=== PATIENT | male | born 1985 | race Caucasian/White ===

== ENCOUNTER 2016-09-26 16:12 | Emergency (ER) | payer SELFPAY ==
[2016-09-26 16:23] VITALS: BP 136/99
--- NOTE | 2016-09-26 17:04 | UC ---
Cardiac HPI - HPI Summary HPI Summary: complaint of chest pain that started 3-4 months ago feels a cramping in his chest sometimes feels some shortness of breath hasn't been able to come in until today d/t his schedule today at 12:00 felt a cramping in his chest that lasted for several seconds intermittent for 2-3 minutes during the cramping felt slightly short of breath and nauseated at that time denies dizziness, diaphoresis heroin user- had a rough night last night because he used some old heroin from a cooking dish and since he had yesterday - felt tired and sweaty then coudn't sleep last night at this time he has no chest pain wants to be checked for lyme disease-d/t having many tock bites during the last year- doesn't have a PCP - History of Current Complaint Chief Complaint: UCChestPain Stated Complaint: CHEST CRAMPING Time Seen by Provider: 09/26/16 16:55 Hx Obtained From: Patient - Allergy/Home Medications Allergies/Adverse Reactions: Allergies Allergy/AdvReac Type Severity Reaction Status Date / Time No Known Allergies Allergy Verified 08/06/15 16:10 PMH/Surg Hx/FS Hx/Imm Hx Previously Healthy: Yes - heroin user Endocrine History: Hyperthyroidism - HepC - Surgical History Surgical History: Yes Surgery Procedure, Year, and Place: fx lft ankle 2005- surgical repair with screws - Family History Known Family History: Positive: Other - NONCONTIBUTORY Negative: Cardiac Disease, Hypertension, Diabetes - Social History Occupation: Employed Full-time Lives: With Family Alcohol Use: Weekly Substance Use Type: Heroin, Marijuana Substance Use Comment - Amount & Last Used: daily heroin user Smoking Status (MU): Current Some Day Smoker Type: Cigarettes Amount Used/How Often: 1 ppd Have You Smoked in the Last Year: Yes Cessation Counseling: Patient Advised to Stop - Immunization History Most Recent Influenza Vaccination: never Most Recent Tetanus Shot: unknown Most Recent Pneumonia Vaccination: never Review of Systems Constitutional: Fatigue Skin: Negative Eyes: Negative ENT: Negative Respiratory: Negative Cardiovascular: Chest Pain - resolved Gastrointestinal: Negative Genitourinary: Negative Motor: Negative Neurovascular: Negative Musculoskeletal: Negative Neurological: Negative Psychological: Negative All Other Systems Reviewed And Are Negative: Yes Physical Exam Triage Information Reviewed: Yes Appearance: No Pain Distress, Well-Nourished Vital Signs: Initial Vital Signs Temp 97.9 F 09/26/16 16:19 Pulse 92 09/26/16 16:19 Resp 20 09/26/16 16:19 BP 136/99 09/26/16 16:19 Pulse Ox 99 09/26/16 16:19 Vital Signs Reviewed: Yes Eyes: Positive: Conjunctiva Clear ENT: Positive: Pharynx normal, TMs normal Neck: Positive: No Lymphadenopathy Respiratory: Positive: Lungs clear, Normal breath sounds, No respiratory distress, No accessory muscle use Cardiovascular: Positive: RRR, No Murmur, Pulses Normal Abdomen Description: Positive: Nontender, Soft Bowel Sounds: Positive: Present Musculoskeletal: Positive: No Edema Neurological: Positive: Alert Psychological Exam: Normal Skin Exam: Normal - Differential Diagnoses - Chest Pain Differential Diagnosis/HQI/PQRI: Acute [place], ACS - Differential Diagnoses - Palpitations Differential Diagnosis/HQI/PQRI: Pericarditis - Clinical Impression Provider Diagnoses: chest pain Discharge - Discharge Plan Condition: Stable Disposition: AGAINST MEDICAL ADVICE Patient Education Materials: Tick Bite (ED), Chest Pain (ED), Narcotic Abuse ( ED) Referrals: No Primary Care Phys,NOPCP [Primary Care Provider] - [facility] [place] [facility] [Outside] Additional Instructions: Your ECG is normal at this time. I recommend that you be seen in the emergency department for further evaluation and treatment today. please call the patient referral number to find a primary care physician
== END 2016-09-26 17:31 | disposition left against medical advice (07) ==
LOC: UCEAST 16:12
DX: R07.9 Chest pain, unspecified (principal); F17.210 Nicotine dependence, cigarettes, uncomplicated
CPT/HCPCS: 86618; 93005; 99212; G0463

== ENCOUNTER 2016-10-07 16:59 | Emergency (ER) | payer OTHER ==
[2016-10-07] MEDS ORDERED: oxyCODONE TAB* 5 MG TAB PO ONE ×2 (18:15→22:04)
[2016-10-07] MEDS ORDERED: cefTRIAXone(*) 1 GM in NS 0.9% 50 ML* 50 ML IVPB ONE ×2 (18:15→20:03)
[2016-10-07] MEDS ORDERED: NS 0.9% 1000 ML* 2,000 ML IV ONE (18:15)
[2016-10-07 19:21] LABS: Hematocrit 39 % (42-52); Hemoglobin 13.1 g/dl (14.0-18.0); Mean Corpuscular HGB Conc 34 g/dl (31-36); Mean Corpuscular Hemoglobin 29 pg (27-31); Mean Corpuscular Volume 85 fL (80-94); Mean Platelet Volume 8 um3 (7.4-10.4); Red Blood Count 4.59 10^6/ul (4.0-5.4); Red Cell Distribution Width 13 % (10.5-15); White Blood Count 8.6 10^3/ul (3.5-10.8)
[2016-10-07 19:41] LABS: ALT 19 U/L (7-52); AST 23 U/L (13-39); Alkaline Phosphatase 96 U/L (34-104); Anion Gap 7 mmol/L (2-11); BUN/Creatinine Ratio 13.1 (8-20); Blood Urea Nitrogen 8 mg/dL (6-24); CO2 Carbon Dioxide 27 mmol/L (22-32); Calcium 9.6 mg/dL (8.6-10.3); Chloride 103 mmol/L (101-111); Creatine Kinase 89 U/L (10-223); EGFR African American 199.6 (>60); EGFR Non-African American 155.2 (>60); Glucose 89 mg/dL (70-100); Lipase 25 U/L (11.0-82.0); Sodium 137 mmol/L (133-145)
[2016-10-07 19:45] LABS: Acetaminophen < 15 mcg/mL; Alcohol < 10 mg/dL (<10); Salicylate < 2.50 mg/dL (<30)
[2016-10-07 19:54] LABS: TSH (Thyroid Stimulating Horm) 0.21 mcIU/mL (0.34-5.60)
[2016-10-07] MEDS ORDERED: NS 0.9% 1000 ML* 1,000 ML IV ONE (20:03)
[2016-10-07] MEDS ORDERED: Iohexol 350* (CONTRAST) 500 ML MDV IV ONE (20:07)
--- NOTE | 2016-10-07 20:17 | RAD ---
Indication: Lower extremity infection. Comparison: No relevant prior exams available on the [facility] PACS for comparison. Technique: Upright AP 1940 hours Report: Clear lungs and pleural spaces. The heart, pulmonary vasculature, and mediastinal contours are unremarkable. Unremarkable osseous structures and soft tissue contours. IMPRESSION: No evidence for acute intrathoracic disease.
--- NOTE | 2016-10-07 20:23 | RAD ---
Indication: LEFT ankle pain. Previous ankle surgery. Comparison: March 12, 2006 radiographs. Technique: AP, mortise, and lateral views LEFT ankle. AP and lateral views Report: No evidence for component failure or loosening with regard to the internal fixation hardware at the distal fibula/lateral malleolus and tibial plafond and. Mild widening of the ankle mortise medially decreased compared with the 2006 exam. No acute or subacute fracture evident. Minimal osteophytosis at the talocrural joint. Mild nonfocal soft tissue swelling. IMPRESSION: Internal fixation hardware at healed distal fibula and tibial plafond fractures. Mild widening of the ankle mortise medially decreased compared with the 2006 exam. Mild talocrural joint osteoarthritis.
--- NOTE | 2016-10-07 20:39 | RAD ---
Indication: Anterior mid shaft region RIGHT lower extremity infection. Comparison: No relevant prior exams available on the [facility] PACS for comparison. Technique: AP and lateral views RIGHT lower leg. Report: Mild soft tissue edema at the proximal diaphysis region soft tissue plane. No conspicuous foreign body. Negative for subcutaneous emphysema. Negative for fracture, periosteal reaction, or articular malalignment. IMPRESSION: Mild anterior soft tissue swelling. Negative for fracture or radiographic stigmata of osteomyelitis.
--- NOTE | 2016-10-07 20:47 | RAD ---
INDICATION: Chest pain. Positive d-dimer. COMPARISON: October 07, 2016 TECHNIQUE: Multidetector CT images were obtained from the lung apices to the upper abdomen with 82 mL Omnipaque 350 IV contrast. Pulmonary angiogram protocol. Multiplanar reformation including with maximum intensity projection. REPORT: Clear lungs and pleural spaces. Negative for pneumothorax. Normal variant residual thymic tissue in the anterior mediastinum. Negative for thoracic lymphadenopathy, cardiomegaly, pericardial effusion. Unremarkable thoracic aorta. No filling defects are identified from the main to the subsegmental pulmonary arteries to indicate presence of a pulmonary embolism. Unremarkable images through the upper abdomen. Unremarkable osseous structures. IMPRESSION: No evidence for pulmonary embolism or other acute intrathoracic disease.
[2016-10-07] MEDS ORDERED: cefTRIAXone(*) 1 GM ADVAN ONE (21:07)
--- NOTE | 2016-10-07 21:22 | RAD ---
INDICATION: Lower extremity pain. COMPARISON: No relevant prior exams available on the [facility] PACS for comparison. TECHNIQUE: Higgins scale, color Doppler, and spectral analysis of the deep veins of the RIGHT lower extremity. Vessel compression, phasicity, and augmentation assessed. The patient declined evaluation of the LEFT leg despite physician order for bilateral exam. REPORT: The RIGHT common femoral, great saphenous, profunda femoral, femoral, popliteal, peroneal, and posterior tibial veins are patent. IMPRESSION: No evidence for RIGHT lower extremity deep venous thrombosis.
[2016-10-07] MEDS ORDERED: Cephalexin CAP* 500 MG PO ONE ×2 (22:03)
--- NOTE | 2016-10-07 22:13 | ED ---
Sawyer Gannon Benjamin, scribed for Pedro Cintron MD on 10/07/16 at 1854 . Lower Extremity - HPI Summary HPI Summary: 30yo male c/o right varela wound from previous fall that is now painful, red, and swollen. Pt also has ortho surgical hx in his left ankle with rods and screws put in, which pt complains that has been more painful and swollen. Pt is unable to bear weight in his left ankle. Pt reports subjective fever and is worried that his right varela might be infected. Pt also reports intermittent chest cramps and SOB for 6 months. Pt has hx of heroin use and last reported use was 2 weeks ago. - History of Current Complaint Chief Complaint: EDExtremityLower Stated Complaint: LEG PAIN Time Seen by Provider: 10/07/16 18:02 Hx Obtained From: Patient Onset/Duration: Still Present Severity Initially: Moderate Severity Currently: Moderate Pain Intensity: 8 Pain Scale Used: 0-10 Numeric Timing: Constant Location: Is Discrete @ - right varela and left ankle Character Of Pain: Aching, Throbbing Associated Signs And Symptoms: Positive: Swelling, Redness, Fever - Allergies/Home Medications Allergies/Adverse Reactions: Allergies Allergy/AdvReac Type Severity Reaction Status Date / Time No Known Allergies Allergy Verified 08/06/15 16:10 PMH/Surg Hx/FS Hx/Imm Hx Endocrine/Hematology History: Denies: Hx Diabetes, Hx Thyroid Disease Cardiovascular History: Denies: Hx Hypertension Respiratory History: Denies: Hx Asthma, Hx Chronic Obstructive Pulmonary Disease (COPD) GI History: Denies: Hx Ulcer Psychiatric History: Reports: Hx Substance Abuse - Surgical History Surgery Procedure, Year, and Place: fx lft ankle 2005- surgical repair with screws Infectious Disease History: Yes Infectious Disease History: Reports: Hx Hepatitis - hep C Denies: Hx Clostridium Difficile, Hx Human Immunodeficiency Virus (HIV), Hx of Known/Suspected MRSA, Hx Shingles, Hx Tuberculosis, History Other Infectious Disease, Traveled Outside the [place] in Last 30 Days - Family History Known Family History: Positive: Other - NONCONTIBUTORY Negative: Cardiac Disease, Hypertension, Diabetes - Social History Occupation: Employed Full-time Lives: With Family Alcohol Use: Weekly Substance Use Type: Reports: Heroin, Marijuana, Prescribed Substance Use Comment - Amount & Last Used: occasionally uses heroin, weekly marijuana Smoking Status (MU): Light Every Day Tobacco Smoker Type: Cigarettes Amount Used/How Often: 1 ppd Have You Smoked in the Last Year: Yes Review of Systems Positive: Fever Eyes: Negative ENT: Negative Positive: Chest Pain Positive: Shortness Of Breath Genitourinary: Negative Positive: Arthralgia - left ankle; right varela, Edema - left ankle; right varela Positive: Other - right varela wound Neurological: Negative Psychological: Normal All Other Systems Reviewed And Are Negative: Yes Physical Exam Triage Information Reviewed: Yes Vital Signs On Initial Exam: Initial Vitals Temp Pulse Resp BP Pulse Ox 98.6 F 64 13 134/82 99 10/07/16 17:08 10/07/16 17:08 10/07/16 17:08 10/07/16 17:08 10/07/16 17:08 Vital Signs Reviewed: Yes Appearance: Positive: Well-Appearing, Well-Nourished, Pain Distress - mild Skin: Positive: Warm, Skin Color Reflects Adequate Perfusion, Dry, Other - Right varela 2.5mm scab 6mm erythema, no drainage. Head/Face: Positive: Normal Head/Face Inspection Eyes: Positive: EOMI, EFREN ENT: Positive: Normal ENT inspection Neck: Positive: Supple, Nontender Respiratory/Lung Sounds: Positive: Clear to Auscultation, Breath Sounds Present Cardiovascular: Positive: RRR. Negative: Murmur Abdomen Description: Positive: Nontender, Soft Bowel Sounds: Positive: Present Musculoskeletal: Positive: Pain @ - Left ankle tender to palpation not erythematous. Neurological: Positive: Sensory/Motor Intact, Alert, Oriented to Person Place, Time, CN Intact II-III Psychiatric: Positive: Affect/Mood Appropriate - [place] Coma Scale Coma Scale Total: 15 Diagnostics - Vital Signs Vital Signs Temp Pulse Resp BP Pulse Ox 10/07/16 17:08 98.6 F 64 13 134/82 99 - Laboratory Lab Results: Lab Results 10/07/16 10/07/16 10/07/16 Range/Units 19:00 19:00 19:00 WBC 8.6 (3.5-10.8) 10^3/ul RBC 4.59 (4.0-5.4) 10^6/ul Hgb 13.1 L (14.0-18.0) g/dl Hct 39 L (42-52) % MCV 85 (80-94) fL MCH 29 (27-31) pg MCHC 34 (31-36) g/dl RDW 13 (10.5-15) % Plt Count 361 (150-450) 10^3/ul MPV 8 (7.4-10.4) um3 Neut % (Auto) 60.7 (38-83) % Lymph % (Auto) 29.2 (25-47) % [place] % (Auto) 8.1 (1-9) % Eos % (Auto) 0.6 (0-6) % Baso % (Auto) 1.4 (0-2) % Absolute Neuts (auto) 5.2 (1.5-7.7) 10^3/ul Absolute Lymphs (auto) 2.5 (1.0-4.8) 10^3/ul Absolute Monos (auto) 0.7 (0-0.8) 10^3/ul Absolute Eos (auto) 0.1 (0-0.6) 10^3/ul Absolute Basos (auto) 0.1 (0-0.2) 10^3/ul Absolute Nucleated RBC 0.02 10^3/ul Nucleated RBC % 0.3 INR (Anticoag Therapy) 1.02 (0.89-1.11) APTT 31.4 (26.0-36.3) seconds D-Dimer, Quantitative 638 H (Less Than 230) ng/mL Sodium 137 (133-145) mmol/L Potassium 4.0 (3.5-5.0) mmol/L Chloride 103 (101-111) mmol/L Carbon Dioxide 27 (22-32) mmol/L Anion Gap 7 (2-11) mmol/L BUN 8 (6-24) mg/dL Creatinine 0.61 L (0.67-1.17) mg/dL Est GFR ( Amer) 199.6 (>60) Est GFR (Non-Af Amer) 155.2 (>60) BUN/Creatinine Ratio 13.1 (8-20) Glucose 89 (70-100) mg/dL Lactic Acid (0.5-2.0) mmol/L Calcium 9.6 (8.6-10.3) mg/dL Total Bilirubin 0.50 (0.2-1.0) mg/dL AST 23 (13-39) U/L ALT 19 (7-52) U/L Alkaline Phosphatase 96 (34-104) U/L Total Creatine Kinase 89 (10-223) U/L CK-MB (CK-2) 0.8 (0.6-6.3) ng/mL Troponin I 0.00 (<0.04) ng/mL C-Reactive Protein 12.30 H (< 5.00) mg/L Total Protein 8.0 (6.4-8.9) g/dL Albumin 4.0 (3.2-5.2) g/dL Globulin 4.0 (2-4) g/dL Albumin/Globulin Ratio 1.0 (1-3) Lipase 25 (11.0-82.0) U/L TSH 0.21 L (0.34-5.60) mcIU/mL Salicylates < 2.50 (<30) mg/dL Acetaminophen < 15 mcg/mL Serum Alcohol < 10 (<10) mg/dL 10/07/16 Range/Units 19:00 WBC (3.5-10.8) 10^3/ul RBC (4.0-5.4) 10^6/ul Hgb (14.0-18.0) g/dl Hct (42-52) % MCV (80-94) fL MCH (27-31) pg MCHC (31-36) g/dl RDW (10.5-15) % Plt Count (150-450) 10^3/ul MPV (7.4-10.4) um3 Neut % (Auto) (38-83) % Lymph % (Auto) (25-47) % [place] % (Auto) (1-9) % Eos % (Auto) (0-6) % Baso % (Auto) (0-2) % Absolute Neuts (auto) (1.5-7.7) 10^3/ul Absolute Lymphs (auto) (1.0-4.8) 10^3/ul Absolute Monos (auto) (0-0.8) 10^3/ul Absolute Eos (auto) (0-0.6) 10^3/ul Absolute Basos (auto) (0-0.2) 10^3/ul Absolute Nucleated RBC 10^3/ul Nucleated RBC % INR (Anticoag Therapy) (0.89-1.11) APTT (26.0-36.3) seconds D-Dimer, Quantitative (Less Than 230) ng/mL Sodium (133-145) mmol/L Potassium (3.5-5.0) mmol/L Chloride (101-111) mmol/L Carbon Dioxide (22-32) mmol/L Anion Gap (2-11) mmol/L BUN (6-24) mg/dL Creatinine (0.67-1.17) mg/dL Est GFR ( Amer) (>60) Est GFR (Non-Af Amer) (>60) BUN/Creatinine Ratio (8-20) Glucose (70-100) mg/dL Lactic Acid 0.8 (0.5-2.0) mmol/L Calcium (8.6-10.3) mg/dL Total Bilirubin (0.2-1.0) mg/dL AST (13-39) U/L ALT (7-52) U/L Alkaline Phosphatase (34-104) U/L Total Creatine Kinase (10-223) U/L CK-MB (CK-2) (0.6-6.3) ng/mL Troponin I (<0.04) ng/mL C-Reactive Protein (< 5.00) mg/L Total Protein (6.4-8.9) g/dL Albumin (3.2-5.2) g/dL Globulin (2-4) g/dL Albumin/Globulin Ratio (1-3) Lipase (11.0-82.0) U/L TSH (0.34-5.60) mcIU/mL Salicylates (<30) mg/dL Acetaminophen mcg/mL Serum Alcohol (<10) mg/dL Result Diagrams: 10/07/16 19:00 10/07/16 19:00 Lab Statement: Any lab studies that have been ordered have been reviewed, and results considered in the medical decision making process. - Radiology CXR Xray Interpretation: No Acute Changes Radiology Interpretation Completed By: Radiologist left ankle XR Xray Interpretation: Positive (See Comments) - IMPRESSION: Internal fixation hardware at healed distal fibula and tibial plafond fractures. Mild widening of the ankle mortise medially decreased compared with the 2006 exam. Mild talocrural joint osteoarthritis. Radiology Interpretation Completed By: Radiologist Lower extremities XR Xray Interpretation: No Acute Changes Radiology Interpretation Completed By: Radiologist - CT CTA Chest CT Interpretation: No Acute Changes - no PE CT Interpretation Completed By: Radiologist - Ultrasound No standard instances Ultrasound Interpretation: No Acute Changes - no right lower extremity DVT Ultrasound Interpretation Completed By: Radiologist - EKG 1724 Cardiac Rate: NL - 61bpm ST Segment: Normal Ectopy: None EKG Interpretation: normal sinus arrhythemia Lower Extremity Course/Dx - Course Course Of Treatment: NO CRITICAL CARE TIME. DISCUSSED RESULTS WITH PATIENT. ANKLE SPRAIN KELECHI WRAP/CRUTCHES/OXY #15 AND F/U PMD. CHEST PAIN F/U PMD. DISCUSSED LOW TSH/HYPERTHYROIDISM WITH PATIENT, HE WILL F/U WITH PMD. CELLULITIS RX KEFLEX. - Diagnoses Provider Diagnoses: Cellulitis of right leg, Left ankle sprain, Chest pain, Hyperthyroidism Discharge - Discharge Plan Condition: Stable Disposition: HOME Prescriptions: Cephalexin CAP* [Keflex CAP*] 500 mg PO QID #38 cap oxyCODONE TAB* [Roxycodone TAB 5 mg*] 5 mg PO Q4H PRN #15 tab MDD 6 PRN Reason: Pain Patient Education Materials: Cellulitis (ED), Ankle Sprain (ED), Chest Pain (ED ), Hyperthyroidism (ED) Referrals: No Primary Care Phys,NOPCP [Primary Care Provider] - [facility] [place] [facility] [Outside] Additional Instructions: FOLLOW UP WITH YOUR DOCTOR. CALL TOMORROW FOR FOLLOW UP. RETURN TO THE EMERGENCY DEPARTMENT FOR ANY WORSENING OF YOUR CONDITION OR QUESTIONS OR CONCERNS. The documentation as recorded by the Sawyer majano Benjamin accurately reflects the service I personally performed and the decisions made by me, Pedro Cintron MD.
[2016-10-07 22:47] VITALS: BP 122/83
== END 2016-10-07 22:30 | disposition home or self-care (01) ==
LOC: ED 16:59
DX: R07.9 Chest pain, unspecified (principal); R06.02 Shortness of breath; F17.210 Nicotine dependence, cigarettes, uncomplicated; L03.115 Cellulitis of right lower limb; S93.402A Sprain of unspecified ligament of left ankle, initial encounter; W19.XXXA Unspecified fall, initial encounter; Y93.9 Activity, unspecified; Y92.9 Unspecified place or not applicable
CPT/HCPCS: 36415; 71010; 71275; 80053; 80320; 80329; 82550; 82553; 83605; 83690; 84443; 84484; 85025; 85379; 85610; 85730; 86140; 87040; 93005; 93970; 99283; A9270-GY; G0480; J0696; Q9967